=== PATIENT | female | born 1975 | race Caucasian/White ===

== ENCOUNTER 2024-04-25 07:37 | Emergency (ER) | payer BC, SELFPAY ==
[2024-04-25 07:40] VITALS: BP 126/74
--- NOTE | 2024-04-25 07:49 | ED.GENMED ---
History of Present Illness
General
Chief Complaint: Fainting/Passed Out
Source: patient
Time Seen by Provider: 04/25/24 07:43
History of Present Illness
History of Present Illness:
49-year-old female presenting to the emergency department for evaluation after she had a syncopal episode approximately 20 to 30 minutes prior to arrival to the emergency department. Patient states that she has an older dog who had fallen and had
attempted to lift him off the ground but felt this sharp pain in her left lower back. Due to the pain patient started to feel nauseous and went to the bathroom and while sitting on the toilet proceeded to have a syncopal episode. Patient states
she believes she felt for as she noted little contusion to her forehead and also some pain to her right ankle she states she otherwise has no other concerns. Denies any history of syncope in the past. Notes she has had similar back pain in the
past before and that this feels similar to previous episodes of her back pain. She was given Toradol in the ambulance on the way to the ER. Patient is otherwise denying any chest pain, abdominal pain or any other symptoms presently.
Past History
Past History
ED Past Medical History: Cancer (Thyroid in 2010) and Hypothyroidism
ED Past Surgical History: Other
Social History
Tobacco: Non-smoker
Alcohol: None
Drug: None
Personal:
Living: with family
Employment: Employed
Review of Systems
Review of Systems
All Other Systems: ROS reviewed and negative except as documented in HPI and ROS
Phy Exam
Physical Exam
Physical Exam:
GENERAL: Alert , in no apparent distress
HEAD: small contusion forehead
EYE: Clear conjunctiva
NECK: Supple
ENT: o/p clr, mmm.
CARDIAC: Regular rate and rhythm .
LUNGS: Clear breath sounds bilaterally, no acute respiratory distress, no wheezes/rales/rhonchi
ABDOMEN: Soft, without focal tenderness, no r/g, no cvat
BACK: LROM 2/2 pain, mild tenderness left lower back
NEUROLOGICAL: Alert and oriented x3
SKIN: Warm and dry, skin intact.
MUSCULOSKELETAL: well perfused. Right lower extremity: No signs of trauma, no areas of focal tenderness, full range of motion and neurovascularly intact
PSYCH: Normal and appropriate interaction.
Scores
Heart Failure Risk
Heart Failure Risk Score: Not Applicable
Heart Score for Chest Pain Patients
STEMI patient?: Not applicable
Withdrawal Assessment of Alcohol
Withdrawal Assessment Completed?: Not applicable
Course
Orders/Labs/Results
Orders:
Orders
04/25/24 07:38
EKG [Electrocardiogram (*1)] Urgent
Reason for Study: Syncope
EKG- Treatment ONCE
04/25/24 07:44
Complete Blood Count/With Diff Urgent
Comprehensive Metabolic Panel Urgent
Abnormal Lab Results
04/25/24
07:44
RBC 3.84 L 10^6/uL
(4.20-5.40)
Hct 33.6 L %
(37.0-47.0)
MCH 31.5 H pg
(27.0-31.0)
Chloride 108 H mmol/L
(98-107)
Glucose 101 H mg/dl
(70-99)
Total Protein 6.2 L g/dl
(6.3-8.2)
04/25/24 07:44
04/25/24 07:44
Vital Signs
Initial and Last Documented VS:
Initial Vital Signs
Temp Pulse Resp BP Pulse Ox
98.1 F 84 18 126/74 100
04/25/24 07:40 04/25/24 07:40 04/25/24 07:40 04/25/24 07:40 04/25/24 07:40
Last Documented Vital Signs
Temp Pulse Resp BP Pulse Ox
98.1 F 87 24 123/80 100
04/25/24 07:40 04/25/24 08:45 04/25/24 08:45 04/25/24 08:00 04/25/24 08:30
MDM/Problems Addressed
Differential Diagnosis Includes:
Vagal event following pain response, lumbar strain, I do not have concern for intracranial bleeding, possible right ankle sprain
MDM/Problems Addressed:
49-year-old female presenting to the emergency department for evaluation following a syncopal event that occurred shortly after developing some left-sided lower back pain while attempting to lift her dog off the ground. Patient with history of
mechanical back pain in the past and states this feels similar. Overall I am not concerned for cardiogenic syncope given patient had prodromal symptoms well as pain response. I did offer CT scan of the head however patient declines. I also
offered x-ray of the right ankle given patient's reported right ankle pain but she states that this feels fine as well. EKG ordered and will check labs. Anticipate discharge home following.
*Pulse Oximetry
Patient hypoxic: no
*EKG
Interpreted by ED Provider?: Yes
Comparison EKG: no changes
Heart Rate: 82
Rate: normal
Rhythm: sinus
[place]: normal axis
Ischemia: no ischemia
*[employer] Interpretation
Rate: normal
Rhythm: sinus
*Critical Care Note
Total Time (30-74mins, 75-104mins- exclusive of procedures): Not Applicable
Patient Management
Escalation/DeEscalation of care consider admission/obs:
Patient feeling better. Labs are largely unremarkable. is in the ER now with the patient. Patient feels comfortable being discharged home. Requesting a muscle relaxer. Baclofen prescription sent to pharmacy. Patient is otherwise stable
for discharge home.
ED Attending Note
-
Portions of this chart may have been created with voice recognition software.� Occasional wrong word or��sound alike� substitutions may have occurred due to the inherent limitations of voice recognition software.
Discharge Plan
Departure
Patient Disposition: Home (Routine Discharge)
Date of Disposition: 04/25/24
Time of Disposition: 08:49
Patient with high blood pressure during this ER visit?: No
Discharge Problem:
Vasovagal syncope, Low back pain
Instructions: Syncope (Fainting) (DC)
Prescriptions:
New
baclofen 10 mg tablet
10 mg PO BID PRN (Reason: muscle spasm) Qty: 8 0RF
No Action
levothyroxine [Synthroid] 137 mcg Tablet
137 mcg PO DAILY
cholecalciferol (vitamin D3) 50 mcg (2,000 unit) Tablet
50 mcg PO DAILY
acetaminophen [Pain Relief ES (acetaminophen)] 500 mg Tablet
1,000 mg PO Q6HPRN PRN (Reason: moderate pain) Qty: 0 0RF
ibuprofen 800 mg tablet
800 mg PO Q8H PRN (Reason: Pain) Qty: 30 0RF
ondansetron HCl 4 mg tablet
4 mg PO Q4HPRN PRN (Reason: nausea and vomiting) 4 Days Qty: 5 0RF
Vitron-C 65 mg iron- 125 mg tablet,delayed release (DR/EC)
1 tab PO DAILY Qty: 60 0RF
oxycodone 5 mg tablet
5 mg PO Q6H PRN (Reason: severe pain) Qty: 6 0RF
Referrals:
Babita Springer MD [Family Provider] -
Interventions
Interventions:
*Risk Screen - Suicide Last Done: 04/25/24 08:50
*General Assessment Last Done: 04/25/24 09:04
*Neglect/Abuse Screening Last Done: 04/25/24 08:50
ED- Fall Risk Assessment Last Done: 04/25/24 09:04
*ED COVID-19 Vaccine History Last Done: 04/25/24 09:04
*Nursing Disposition Last Done: 04/25/24 09:04
ED- Cardiac Assessment Last Done: 04/25/24 09:03
ED- Neurological Assessment Last Done: 04/25/24 09:03
Discharge Date and Time
Discharge Date/Time: 04/25/24 09:05
Print Language: MALTESE
[2024-04-25 07:57] LABS: % Basophils 0.9 % (0-2); % Eosinophils 1.8 % (0-6); % Immature Granulocytes 0.4 % (0-0.5); % Lymphocytes 38.4 % (20.5-51.1); % Monocytes 6.2 % (1.7-9.3); % Neutrophils 52.3 % (42.2-75.2); Absolute Basophils 0.1 10^3/uL (0-0.2); Absolute Eosinophils 0.1 10^3/uL (0-0.7); Absolute Lymphocytes 2.7 10^3/uL (1.2-3.4); Absolute Monocytes 0.4 10^3/uL (0.1-0.6); Absolute Neutrophils 3.7 10^3/uL (1.4-6.5); Hematocrit 33.6 % (37.0-47.0); Hemoglobin 12.1 g/dL (12.0-16.0); Mean Corpuscular Hgb 31.5 pg (27.0-31.0); Mean Corpuscular Volume 87.5 fL (81.0-99.0); Mean Platelet Volume 10.4 fL (7.4-10.4); Nucleated Red Blood Cells % 0 %; Platelet Count 214 10^3/uL (130-400); Red Blood Cell Count 3.84 10^6/uL (4.20-5.40); Red Cell Dist. Width 13.5 % (11.5-14.5); White Blood Cell Count 7.1 10^3/uL (4.8-10.8)
[2024-04-25 08:00] VITALS: BP 123/80
[2024-04-25 08:28] LABS: ALT (SGPT) 12 U/L (0-35); AST (SGOT) 19 U/L (14-36); Albumin 3.8 g/dl (3.5-5.0); Alkaline Phosphatase 76 U/L (38-126); Blood Urea Nitrogen 14 mg/dl (7-17); Calcium 8.8 mg/dl (8.4-10.2); Carbon Dioxide 22 mmol/L (22-30); Chloride 108 mmol/L (98-107); Glucose 101 mg/dl (70-99); Sodium 137 mmol/L (135-145); Total Bilirubin 0.4 mg/dl (0.2-1.3); Total Protein 6.2 g/dl (6.3-8.2); eGFR > 60.00
== END 2024-04-25 09:05 | disposition home or self-care (01) ==
LOC: EMR 07:37
PROVIDERS: Physician Assistant Medical; EMERGENCY PHYSICIAN Emergency Medicine; FAMILY PHYSICIAN Family Medicine
DX: R55 Syncope and collapse (principal); M54.50 Low back pain, unspecified; R11.0 Nausea; M25.571 Pain in right ankle and joints of right foot; S00.83XA Contusion of other part of head, initial encounter; W18.11XA Fall from or off toilet without subsequent striking against object, initial encounter; Y92.002 Bathroom of unspecified non-institutional (private) residence as the place of occurrence of the external cause; Z85.850 Personal history of malignant neoplasm of thyroid
CPT/HCPCS: 99283; 80053; 85025; 93005

== ENCOUNTER 2025-02-26 06:22 | Day surgery (SDC) | payer BC, SELFPAY | END 2025-02-26 08:47 | disposition home or self-care (01) | LOC: GI 06:22 | PROVIDERS: ATTENDING PHYSICIAN Internal Medicine Gastroenterology | DX: Z12.11 Encounter for screening for malignant neoplasm of colon (principal); K64.9 Unspecified hemorrhoids; D17.5 Benign lipomatous neoplasm of intra-abdominal organs; K63.89 Other specified diseases of intestine | CPT/HCPCS: 45380; 88305 ==